=== PATIENT | male | born 1995 | race Caucasian/White ===

== ENCOUNTER 2017-06-30 01:28 | Emergency (ER) | payer BC ==
[~2017-06-30] VITALS: Ht 180.3 cm; Wt 69.4 kg
[2017-06-30 01:37] VITALS: Ht 180.3 cm; Wt 69.4 kg
[2017-06-30 03:23] VITALS: BP 132/77
== END 2017-06-30 03:23 | disposition home or self-care (01) ==
LOC: ED 01:28
DX: F41.9 Anxiety disorder, unspecified (principal); F32.9 Major depressive disorder, single episode, unspecified; R06.4 Hyperventilation; F12.929 Cannabis use, unspecified with intoxication, unspecified

== ENCOUNTER 2017-12-22 04:24 | Emergency (ER) | payer BC ==
[~2017-12-22] VITALS: Ht 180.3 cm; Wt 74.8 kg
[2017-12-22 04:29] VITALS: Ht 180.3 cm; Wt 74.8 kg
[2017-12-22 06:43] VITALS: BP 131/69
== END 2017-12-22 06:43 | disposition home or self-care (01) ==
LOC: ED 04:24
DX: F41.0 Panic disorder [episodic paroxysmal anxiety] (principal); F12.10 Cannabis abuse, uncomplicated; F32.9 Major depressive disorder, single episode, unspecified
CPT/HCPCS: J2060; J7030

== ENCOUNTER 2018-06-30 22:53 | Emergency (ER) | payer BC ==
[~2018-06-30] VITALS: Ht 177.8 cm; Wt 76.7 kg
[2018-06-30 23:19] VITALS: Ht 177.8 cm; Wt 76.7 kg
[2018-07-01 01:37] VITALS: BP 126/74
== END 2018-07-01 01:37 | disposition home or self-care (01) ==
LOC: ED 22:53
DX: S61.012A Laceration without foreign body of left thumb without damage to nail, initial encounter (principal); F41.9 Anxiety disorder, unspecified; F32.9 Major depressive disorder, single episode, unspecified; W45.8XXA Other foreign body or object entering through skin, initial encounter; Y93.89 Activity, other specified; Y92.89 Other specified places as the place of occurrence of the external cause; Y99.8 Other external cause status
CPT/HCPCS: 90715